=== PATIENT | female | born 1985 | race Caucasian/White ===

== ENCOUNTER 2020-02-10 10:12 | Outpatient (CLI) | payer OTHER, SELFPAY ==
--- NOTE | 2020-02-10 10:30 | MM_ITS ---
WS: [id number] BILATERAL DIGITAL DIAGNOSTIC MAMMOGRAPHY WITH CAD CLINICAL INFORMATION: left breast lump HISTORY: Diagnostic mammogram. Palpable lump COMPARISON: TECHNIQUE: Bilateral CC and MLO views. FINDINGS: The breasts are composed of heterogeneous fibroglandular density tissue, which can limit the detectio n of small underlying mass lesions. Palpable marker upper outer left breast with underlying partially obscured density measuring 1.5 cm. Dense underlying parenchymal tissue. Ultrasound is pending. Right breast appears unchanged. Benign punctate calcifications ULTRASOUND BREAST LEFT TECHNIQUE: Ultrasound left breast focused area of concern. CLINICAL INFORMATION: left breast lump COMPARISON: None. FINDINGS: Ultrasound left breast at the 11:00 position 2 cm from the nipple. Simple cyst measuring 1.3 x 1.1 x 1.5 CM. Additional cyst at 10:00 measuring 9 x 7 x 8 mm MM/[place] [id number] IMPRESSION: BI-RADS: 2-Benign FOLLOW UP: 1 Year Follow-up Recommend annual screening mammography age 38
--- NOTE | 2020-02-10 11:00 | US_ITS ---
WS: [id number] BILATERAL DIGITAL DIAGNOSTIC MAMMOGRAPHY WITH CAD CLINICAL INFORMATION: left breast lump HISTORY: Diagnostic mammogram. Palpable lump COMPARISON: TECHNIQUE: Bilateral CC and MLO views. FINDINGS: The breasts are composed of heterogeneous fibroglandular density tissue, which can limit the detectio n of small underlying mass lesions. Palpable marker upper outer left breast with underlying partially obscured density measuring 1.5 cm. Dense underlying parenchymal tissue. Ultrasound is pending. Right breast appears unchanged. Benign punctate calcifications ULTRASOUND BREAST LEFT TECHNIQUE: Ultrasound left breast focused area of concern. CLINICAL INFORMATION: left breast lump COMPARISON: None. FINDINGS: Ultrasound left breast at the 11:00 position 2 cm from the nipple. Simple cyst measuring 1.3 x 1.1 x 1.5 CM. Additional cyst at 10:00 measuring 9 x 7 x 8 mm US/US breast LT limited* [id number] IMPRESSION: BI-RADS: 2-Benign FOLLOW UP: 1 Year Follow-up Recommend annual screening mammography age 38
== END 2020-02-10 10:13 | disposition home or self-care (01) ==
LOC: RADSHAW 10:16
PROVIDERS: PCP Family Medicine; Visit Provider Nurse Practitioner Women's Health
DX: N63.20 Unspecified lump in the left breast, unspecified quadrant (principal)
CPT/HCPCS: 76642; 77066

== ENCOUNTER → 2022-05-19 10:40 | Outpatient (BNVA) | payer OTHER, SELFPAY | PROVIDERS: PCP Family Medicine; Visit Provider Nurse Practitioner Women's Health | DX: Z01.419 Encounter for gynecological examination (general) (routine) without abnormal findings (principal); R87.610 Atypical squamous cells of undetermined significance on cytologic smear of cervix (ASC-US); N94.0 Mittelschmerz; N92.0 Excessive and frequent menstruation with regular cycle; D64.9 Anemia, unspecified | CPT/HCPCS: 87624 ==